=== PATIENT | female | born 1965 | race Caucasian/White ===

== ENCOUNTER → 2018-06-15 15:25 | Outpatient (POV) | payer MEDICARE, OTHER, SELFPAY ==
[2018-06-15 15:41] VITALS: BP 138/85; PULSE 87; RESP 18; O2SAT 97
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
== END ==
PROVIDERS: PCP Family Medicine; Visit Provider Clinical Nurse Specialist Family Health
DX: M51.36 Other intervertebral disc degeneration, lumbar region (principal); M96.1 Postlaminectomy syndrome, not elsewhere classified
CPT/HCPCS: 99202

== ENCOUNTER 2018-08-04 17:23 | Observation (INO) ==
--- NOTE | 2018-08-04 17:57 | Emergency Department Note ---
ED Disposition Clinical Impression: Acute bronchitis with bronchospasm, Hypoxia Disposition: Admitted As Inpatient Condition on Discharge: Fair - Critical Care Critical Care Time: Yes Attestation: On 08/04/18, the high probability of a clinically significant, sudden or life threatening deterioration of the following system(s) required my full and direct attention, intervention and personal management. The time I documented below is in addition to time spent performing reported procedures but includes the following listed in this critical care notation. Total Critical Care Time: 32 Vital system(s) involved:: Respiratory Failure My critical care processes included: Assessment & monitoring of V/S, Initial and Re-exams, Data Review/Interpretation, Coordinating Care, Medication Orders and management, Documentation Medical Decision Making - Johnnie Inquiry Pt receiving controlled substance: No Vital Signs: 08/04/18 17:24 08/04/18 17:39 08/04/18 18:23 Temperature 99 F Temperature Source Oral Pulse Rate Pulse Rate [Left Brachial] 103 H 93 H Respiratory Rate 24 24 Blood Pressure Blood Pressure [Left Arm] 131/77 150/75 H Blood Pressure Mean [Left Arm] 95 100 Blood Pressure Source Blood Pressure Source [Left Arm] Automatic Cuff Automatic Cuff Blood Pressure Position Blood Pressure Position [Left Arm] Sitting Supine 02 Sat by Pulse Oximetry 83 L 86 L 92 L Oxygen Delivery Method Room Air Room Air Room Air Oxygen Flow Rate (LPM) 2 08/04/18 20:00 08/04/18 20:16 Temperature 98.6 F Temperature Source Oral Pulse Rate 84 Pulse Rate [Left Brachial] 82 Respiratory Rate 18 18 Blood Pressure 125/83 Blood Pressure [Left Arm] 143/75 H Blood Pressure Mean [Left Arm] 97 Blood Pressure Source Automatic Cuff Blood Pressure Source [Left Arm] Automatic Cuff Blood Pressure Position Sitting Blood Pressure Position [Left Arm] Supine 02 Sat by Pulse Oximetry 92 L Oxygen Delivery Method Nasal Cannula Nasal Cannula Oxygen Flow Rate (LPM) 2.5 - Lab Data Lab Results 08/04/18 17:55: WBC 7.4, RBC 4.21, Hgb 12.8, Hct 39.8, MCV 94.6, MCH 30.5, MCHC 32.2, RDW 13.4, Plt Count 185, MPV 9.3, Neut % (Auto) 65.2, Lymph % (Auto) 27.4, [place] % (Auto) 6.5, Eos % (Auto) 0.3, Baso % (Auto) 0.6, Neut # (Auto) 4.8, Lymph # (Auto) 2.0, [place] # (Auto) 0.5, Eos # (Auto) 0.0, Baso # (Auto) 0.1 08/04/18 17:55: Sodium 136, Potassium 3.4 L, Chloride 101, Carbon Dioxide 27, Anion Gap 11.4, BUN 10, Creatinine 0.91, Estimated Creat Clear 104, Estimated GFR 65, Est GFR ( Amer) 79, Glucose 100, Calcium 8.2 L, Troponin I < 0.02 08/04/18 17:55: Lactate 0.3 L Result diagrams: 08/04/18 17:55 08/04/18 17:55 Orders (Tests/Meds): ED MEDICATIONS Generic Name Dose Route Start Last Admin Trade Name Freq PRN Reason Stop Dose Admin Acetaminophen 650 mg 08/04/18 20:04 Acetaminophen 325mg Tab PO 09/03/18 20:03 Q4HP PRN As Needed for Fever or Pain Albuterol/Ipratropium 3 ml 08/05/18 06:00 Duoneb 3ml [facility] 09/04/18 05:59 QIDRT ARETHA Azithromycin 500 mg/ Sodium 250 mls @ 250 mls/hr 08/05/18 18:30 Chloride IV 08/18/18 18:29 Q24H ARETHA Protocol Ceftriaxone Sodium 1 gm/ 50 mls @ 100 mls/hr 08/05/18 18:30 Sodium Chloride IV 08/18/18 18:29 Q24H [facility] Protocol Methylprednisolone Sodium Succinate 80 mg 08/04/18 20:15 Solu-Medrol 125mg/2ml Vial IV 09/03/18 20:14 Q8H [facility] Sodium Chloride 3 ml 08/04/18 20:04 Sodium Chloride 3% 15ml [facility] 09/03/18 18:16 ONCE PRN INDUCE [employer] Discontinued Medications Generic Name Dose Route Start Last Admin Trade Name Freq PRN Reason Stop Dose Admin Albuterol/Ipratropium 3 ml 08/04/18 18:17 08/04/18 18:31 Duoneb 3ml [facility] 08/04/18 18:18 3 ml ONCE ONE Administration Aspirin 324 mg 08/04/18 18:04 08/04/18 18:07 Aspirin 81mg Chewable Tablet PO 08/04/18 18:05 324 mg ONCE ONE Administration Azithromycin 500 mg/ Sodium 250 mls @ 250 mls/hr 08/04/18 18:30 08/04/18 18:38 Chloride IV 08/18/18 18:29 250 mls/hr Q24H ARETHA Administration Protocol Ceftriaxone Sodium 1 gm/ 50 mls @ 100 mls/hr 08/04/18 18:30 08/04/18 18:31 Sodium Chloride IV 08/18/18 18:29 100 mls/hr Q24H ARETHA Administration Protocol Methylprednisolone Sodium Succinate 125 mg 08/04/18 18:17 08/04/18 18:31 Solu-Medrol 125mg/2ml Vial IV 08/04/18 18:18 125 mg ONCE ONE Administration Sodium Chloride 3 ml 08/04/18 18:17 Sodium Chloride 3% 15ml Neb IH 09/03/18 18:16 ONCE PRN INDUCE [employer] ORDERS Category Date Time Status XR chest portable Stat Exams 08/04/18 17:39 Taken Blood Culture Stat Micro 08/04/18 17:55 Received Sputum Culture & Gram Stain Stat Micro 08/04/18 18:17 Ordered ECG Request by /Naseem Stat Y 08/04/18 17:39 Stop Req - Radiology Data #1 Image(s): Chest Image Reviewed: Yes I reviewed the patient's radiology image Atelectasis versus scar versus minimal infiltrate in the bases. No old x-rays for comparison. - ECG Data Tracing #1 EKG interpreted by Mao Ngo MD: Rhythm: sinus Rate: 90 [place]: Right Ectopy: none Conduction: normal ST Segment Changes: none T Wave Changes: none Q Waves: none No evidence of acute ischemia or injury - Physician Consults Physician Consulted: Artem Time: 19:50 Reason -: Admission Comment/Response: Agrees to admit the patient to the hospital. We discussed the patient's clinical information, including history, exam, laboratory and radiology results and ED course. Per hospital procedure, I will write temporary bridge inpatient orders on the patient. Specific orders requested by the admitting physician: Continue antibiotics, nebulizer treatments, steroids, oxy gen General Adult HPI - General Chief complaint: Shortness of Breath/Dyspnea Stated complaint: Head and chest congestion, wheezing Time Seen by Provider: 08/04/18 17:57 Mode of Arrival: Family Vehicle Source of Information: Patient Limitations: No Limitations Description of Symptoms (Recalled from ER Triage Doc. by RN): C/O SOB,CHEST DISCOMFORT WITH RESP,HEADACHE,WHEEZING FOR 2 DAYS WITH HYPOXIA UPON ARRIVAL - History of Present Illness HPI narrative: 2-day history of productive cough with yellow sputum, subjective fever, rhinorrhea, diarrhea, bitemporal headache, wheezing and shortness of breath. Chest discomfort in the ribs bilaterally when she coughs. Denies history of COPD. She is a smoker, but says she did not start until she was in her 30s. - Related Data Home Medications Medication Instructions Recorded Confirmed Citalopram Hydrobromide 20 mg PO DAILY 06/15/18 08/04/18 [Citalopram HBr] Omeprazole [Omeprazole 40mg 40 mg PO DAILY 06/15/18 08/04/18 Capsule] Allergies Allergy/AdvReac Type Severity Reaction Status Date / Time No Known Allergies Allergy Unverified 08/05/17 14:26 [facility] History - Hepatitis A Screen Drug use history?: No High risk sexual behaviors?: No History of sexually transmitted infection?: No Currently employed?: No Childcare worker?: No Do you have indoor plumbing?: Yes Do you have electricity?: Yes Attestation statement:: This patient has been screened for Hepatitis A risk factors. I have reviewed the patient's past medical history: Yes Medical History: Reports:: Palpitations Denies:: Diabetes Mellitus Type 1, Diabetes Mellitus Type 2 Other Medical History: Reports: Arthritis Laterality Cases: Left: Arthroscopy Knee, Carpal Tunnel Release Other Surgeries: Yes: Cholecystectomy - Social History Smoking Status: Current every day smoker Tobacco Type: cigarettes # Packs/Day (cigarettes): 1 Alcohol Intake: never Occupational Status: other Housing: house - Psychiatric History Expresses thoughts of harming self/others: None Suicide Plan Description: No Plan Family Hx:: Unable to obtain ROS Obtained: Yes All systems reviewed & no additional complaints - Constitutional Constitutional: Reports fever(s) - ENT Ears, Nose, Mouth, and Throat: Reports nasal discharge - Cardiovascular Cardiovascular: Reports chest pain (When coughing) - Respiratory Respiratory: Yes cough, Yes dyspnea, Yes wheezing - Gastrointestinal Gastrointestingal: Reports: diarrhea. Denies: vomiting - Neurologic Neurologic: Reports headache(s) Physical Exam - General General appearance: alert - Head Head exam: atraumatic, normocephalic - Eye Eye exam: Present: PERRL, EOMI - ENT ENT exam: Present: normal oropharynx, mucous membranes moist - Neck Neck exam: Present: normal inspection, trachea midline - Chest Chest inspection: Present: normal inspection - Respiratory Respiratory exam: Present: wheezes - Cardiovascular Cardiovascular exam: Present: normal rhythm, tachycardia, normal heart sounds - Abdominal Exam Abdominal exam: Present: soft. Absent: distention, tenderness, guarding - Extremities Exam Extremities exam: Present: normal inspection, other (Left leg tenderness, chronic, states prior knee surgery with left leg pain for years) - Neurological Exam Neurological exam: Present: alert, oriented X3 - Psychiatric Psychiatric exam: Present: normal affect, normal mood - Skin Skin exam: Present: warm, dry
[2018-08-04 18:10] LABS: Basophils # 0.1 K/mm3 (0-0.2); Basophils % 0.6 % (0.1-2.0); Eosinophils % 0.3 % (0.1-12.0); Hematocrit 39.8 % (37.0-47.0); Hemoglobin 12.8 g/dL (12.2-16.2); Lymphocytes % 27.4 % (10-50); Mean Corpuscular HGB Conc 32.2 g/dL (31.8-35.4); Mean Corpuscular Hemoglobin 30.5 pg (27.0-31.2); Mean Corpuscular Volume 94.6 fl (81-99); Mean Platelet Volume 9.3 fl (7.4-10.4); Monocytes # 0.5 K/mm3 (0.1-1.0); Monocytes % 6.5 % (1.7-9.3); Neutrophils # 4.8 K/mm3 (1.8-7.8); Neutrophils % 65.2 % (37.0-80.0); Platelet Count 185 K/mm3 (142-424); Red Blood Count 4.21 M/mm3 (4.20-5.40); Red Cell Distribution Width 13.4 % (11.5-17.5); White Blood Count 7.4 K/mm3 (4.8-10.8)
[2018-08-04 18:31] LABS: Anion Gap 11.4 mEq/L (5-15); Blood Urea Nitrogen 10 mg/dL (7-18); Calcium 8.2 mg/dL (8.5-10.1); Carbon Dioxide 27 mmol/L (21.0-32.0); Chloride 101 mmol/L (98-107); Glucose 100 mg/dL (74-106); Potassium 3.4 mmoL/L (3.5-5.1); Sodium 136 mmol/L (136-145)
--- NOTE | 2018-08-05 07:49 | Pharmacy Consult Notes ---
[facility] Pharm[facility] VTE Monitoring - Patient Demographics Admission date: 08/04/18 Report Date: 08/05/18 Time: 07:49 Allergies/Adverse Reactions: Patient Allergies No Known Allergies Allergy (Verified 08/04/18 20:44) Height: 1.68 m Weight: 94.404 kg Patient Problems: Current Active Problems Acute bronchitis with bronchospasm (Acute) Hypoxia (Acute) - VTE Risk Labs: VTE Related Lab Results Hgb 12.8 g/dL (12.2-16.2) 08/04/18 17:55 Hct 39.8 % (37.0-47.0) 08/04/18 17:55 Plt Count 185 K/mm3 (142-424) 08/04/18 17:55 BUN 10 mg/dL (7-18) 08/04/18 17:55 Creatinine 0.91 mg/dL (0.55-1.02) 08/04/18 17:55 Estimated Creat Clear 104 mL/min (50-200) 08/04/18 17:55 Was VTE Risk Assessment Performed: Yes VTE Risk Level: Very Low Risk Clinical Trial Participant: No - Prophylaxis VTE Prophylaxis Ordered?: Yes Types of VTE Prophylaxis: TEDS Knee High
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
--- NOTE | 2018-08-06 09:36 | Discharge Summary ---
General - General Admission date:: 08/04/18 Discharge date: 08/06/18 HPI HPI: 52-year-old white female with long smoking history who is on disability because of back pain and significant accidents, who presented to the emergency department with cough, congestion and hypoxia. Found to have a couple of different patchy infiltrates on chest x-ray, admitted to hospital for community acquired pneumonia with hypoxia. Hospital Course Hospital Course: Patient was treated aggressively for COPD exacerbation and community-acquired bronchopneumonia. She responded very nicely with improving vital signs, stabilized labs and improving oxygen saturations. She revealed during the hospitalization that she had been on chronic opiate therapy through a pain clinic in [place] but because of controlled substance contract violation issues opiates had been discontinued. She is apparently been buying opiates off the street and has been taking Percocet 15 mg 4 times daily. She was beginning to have some withdrawal symptoms so in the hospital we administered 10 mg every 8 hours which resolved her withdrawal symptoms. This morning she had improved vis--vis pulmonary symptoms, and was on a very stable low-dose of 2 L nasal cannula oxygen. She was able to eat well and drink well. Tolerating nebulizer treatments well. Plan will be to discharge her home today. I have informed her that she clearly has emphysema and that she must quit smoking for her to have any chance of improving significantly. We will prescribe home oxygen, nebulizer treatments and antibiotics and steroids to go home. I will give her a limited prescription of oxycodone 10 mg tablets, 6 of these to take 1 daily to prevent withdrawal symptoms and then she needs to discuss this with her regular physician, Dr. Fish in [place]. She needs close follow-up with Dr. Fish to evaluate further treatment for her emphysema. Objective Vital signs: Temp Pulse Resp BP Pulse Ox 98.0 F 92 H 19 108/52 L 91 L 08/06/18 07:58 08/06/18 07:58 08/06/18 07:58 08/06/18 07:58 08/06/18 07:58 Narrative: Patient is awake, alert. Eating breakfast well. No acute distress on 2 L nasal cannula. Lungs have rhonchi with occasional expiratory wheezing but much better air entry than admission exam. She is able to talk without interrupting for breathing, heart rate is regular without murmurs, no tachycardia or tachypnea on oxygen. Abdomen soft. No clubbing or cyanosis. Neurologic exam intact. Results Labs on day of discharge: Preliminary micro results at discharge 08/05/18 09:16 Sputum Culture - Preliminary Sputum - Expectorated Sputum DS: Diagnosis - Discharge Diagnosis (1) Acute bronchitis with bronchospasm Status: Acute (2) Hypoxia Status: Acute (3) Panlobular emphysema Status: Chronic Discharge Plan - Patient Discharge Instructions ACTIVITY: Continue current activity DIET: continue same diet - Follow up Plan Follow up with: Inge Fish [Referring] - 1 week Disposition: Home, Self-Halfway Medications: Home Medications Medication Instructions Recorded Confirmed Type Citalopram Hydrobromide 20 mg PO DAILY 06/15/18 08/04/18 History [Citalopram HBr] Omeprazole [Omeprazole 40mg 40 mg PO DAILY 06/15/18 08/04/18 History Capsule] Azithromycin [Zithromax 250mg 250 mg PO DIRECTED #6 tab 08/06/18 Rx tab] Cefdinir [Omnicef 300mg Capsule] 300 mg PO BID #14 cap 08/06/18 Rx Ipratropium/Albuterol Sulfate 3 ml IH TID #90 neb 08/06/18 Rx [Duoneb 3mL neb] Oxycodone HCl [Oxycodone (IR) 10mg 10 mg PO DAILYP PRN #6 tab 08/06/18 Rx Tab] predniSONE [Deltasone 20mg 20 mg PO BID 7 Days #14 tab 08/06/18 Rx tablet] Prescriptions/Medication Reconciliation: New Azithromycin [Zithromax 250mg tab] 250 mg PO DIRECTED #6 tab Ipratropium/Albuterol Sulfate [Duoneb 3mL neb] 3 ml IH TID #90 neb predniSONE [Deltasone 20mg tablet] 20 mg PO BID 7 Days #14 tab Oxycodone HCl [Oxycodone (IR) 10mg Tab] 10 mg PO DAILYP PRN #6 tab PRN Reason: Withdrawal symptoms Cefdinir [Omnicef 300mg Capsule] 300 mg PO BID #14 cap Continue Citalopram Hydrobromide [Citalopram HBr] 20 mg PO DAILY Omeprazole [Omeprazole 40mg Capsule] 40 mg PO DAILY
== END 2018-08-06 18:14 | disposition home or self-care (01) ==
LOC: ER 17:23 → 2ND 17:23
PROVIDERS: ADMIT Internal Medicine Adolescent Medicine; ATTEND Internal Medicine Adolescent Medicine

== ENCOUNTER → 2018-09-09 15:50 | Outpatient (CLI) | payer MEDICARE, SELFPAY ==
--- NOTE | 2018-09-09 16:00 | MM_ITS ---
MM Dig screening mamm BI w/CAD CAD Screening COMPARISON: Digital mammograms with CAD 10/22/2016 and 06/03/2013 INDICATION: There is no personal or family history of breast cancer TECHNIQUE: Standard CC and MLO images were obtained. R2 CAD reviewed. FINDINGS: Scattered fibroglandular densities are seen throughout both breasts. There is a benign-appearing calcification in each breast and is a mole marker right breast. There is no suspicious lesion and there are no suspicious microcalcifications. IMPRESSION: Fibrofatty parenchyma no suspicious lesion seen BI-RADS Category: 2 Benign Finding(s) RECOMMENDED FOLLOW-UP: 1YR - 1 YEAR FOLLOW-UP (A letter has been sent to the patient regarding results of the study.)
== END ==
PROVIDERS: PCP Internal Medicine Adolescent Medicine; Visit Provider Internal Medicine Adolescent Medicine
DX: Z12.31 Encounter for screening mammogram for malignant neoplasm of breast (principal)
CPT/HCPCS: 77067

== ENCOUNTER → 2018-12-11 07:49 | Outpatient (CLI) | payer MEDICARE, OTHER, SELFPAY ==
[2018-12-11 08:31] LABS: Basophils # 0.1 K/mm3 (0-0.2); Eosinophils # 0.4 K/mm3 (0.0-0.4); Eosinophils % 8.3 % (0.1-12.0); Hematocrit 38.8 % (37.0-47.0); Hemoglobin 12.6 g/dL (12.2-16.2); Lymphocytes # 1.5 K/mm3 (0.7-4.5); Lymphocytes % 32.5 % (10-50); Mean Corpuscular HGB Conc 32.4 g/dL (31.8-35.4); Mean Corpuscular Hemoglobin 31.3 pg (27.0-31.2); Mean Corpuscular Volume 96.4 fl (81-99); Mean Platelet Volume 9.2 fl (7.4-10.4); Monocytes # 0.2 K/mm3 (0.1-1.0); Monocytes % 4.4 % (1.7-9.3); Neutrophils # 2.5 K/mm3 (1.8-7.8); Neutrophils % 53.8 % (37.0-80.0); Platelet Count 227 K/mm3 (142-424); Red Blood Count 4.02 M/mm3 (4.20-5.40); Red Cell Distribution Width 13.5 % (11.5-17.5); White Blood Count 4.6 K/mm3 (4.8-10.8)
[2018-12-11 09:23] LABS: Alanine Aminotransferase 14 U/L (12-78); Albumin Level 3.1 gm/dL (3.4-5.0); Alkaline Phosphatase 97 U/L (46-116); Aspartate Amino Transferase 13 U/L (15-37); Bilirubin,Total 0.3 mg/dL (0.2-1.0); Blood Urea Nitrogen 9 mg/dL (7-18); Calcium 8.6 mg/dL (8.5-10.1); Carbon Dioxide 29 mmol/L (21.0-32.0); Chloride 107 mmol/L (98-107); Creatinine,Serum 0.96 mg/dL (0.55-1.02); Estimated Glomerular Filt Rate 61 ml/min (>60); Free Thyroxine Index 2.4 ug/dL (5.93-13.13); GFR (African American) 74 ML/MIN (>60); Glucose 80 mg/dL (74-106); Sodium 144 mmol/L (136-145); T4 (Thyroxine) 7.9 ug/dl (4.7-13.3); Thyroid Stimulating Hormone 1.48 uIU/ml (0.358-3.740); Total Protein,Serum 6.1 gm/dL (6.4-8.2); Triiodothryronine (T3) Uptake 31 % (31-39)
[2018-12-12 06:44] LABS: Vitamin D 25 Hydroxy 22.4 ng/mL (30.0-100.0)
[2018-12-12 12:40] LABS: FSH 58.3 mIU/mL (.); LH 32.5 mIU/mL (.)
[2018-12-12 12:41] LABS: Rapid Plasma Reagin Ab Titer Non Reactive (NonRea<1:1); Vitamin B12 418 pg/mL (232-1245)
== END ==
PROVIDERS: Visit Provider Internal Medicine Adolescent Medicine
DX: R61 Generalized hyperhidrosis (principal); E55.9 Vitamin D deficiency, unspecified; G60.9 Hereditary and idiopathic neuropathy, unspecified
CPT/HCPCS: 36415; 80053; 82607; 82652; 83001; 83002; 84436; 84443; 84479; 85025; 86592

== ENCOUNTER → 2018-12-17 12:53 | Outpatient (CLI) | payer OTHER, MEDICARE, SELFPAY ==
--- NOTE | 2018-12-17 13:00 | XR_ITS ---
XR knee LT 4V HISTORY: ITS.REASON: ACUTE KNEE PAIN ORDERING PHYSICIAN: Eric Mcgill MD PATIENT AGE: 53 years COMPARISON: None FINDINGS: There has been prior ORIF of the lateral tibial plateau with a lateral bone plate and multiple screws present. There are mild osteoarthritic changes involving all 3 compartments. No acute fracture or dislocation. No lytic or blastic change. IMPRESSION: Mild osteoarthritis, prior ORIF lateral tibial plateau with good alignment.
== END ==
PROVIDERS: PCP Internal Medicine Adolescent Medicine; Visit Provider Internal Medicine Adolescent Medicine
DX: M25.562 Pain in left knee (principal)
CPT/HCPCS: 73564

== ENCOUNTER → 2020-04-14 14:01 | Outpatient (POV) | payer MEDICARE, OTHER, SELFPAY | PROVIDERS: Visit Provider Internal Medicine Nephrology | DX: Z00.00 Encounter for general adult medical examination without abnormal findings (principal) ==

== ENCOUNTER → 2020-05-02 08:39 | Outpatient (CLI) | payer MEDICARE, OTHER, SELFPAY ==
--- NOTE | 2020-05-02 08:48 | MR_ITS ---
PROCEDURE: MR LUMBAR SPINE WO/W CON CLINICAL INDICATION: RADICULOPATHY, LUMBAR SPINE PT. C/O LEFT SIDED LBP S/P FALL 5 DAYS AGO COMPARISON: MR [facility] [place]-SPINE W/WO from 09/13/[address] lumbar spine wo con from 08/26/2018 TECHNIQUE: Standard multiplanar multiecho sequences are performed without and with contrast. 3-D MIP and myelographic images are also rendered and reviewed FINDINGS: There is normal alignment. T11-T12: Mild degenerative disc disease. T12-L1: Mild degenerative disc disease. L1-L2: Unremarkable. L2-L3: Minimal bulging disc. L3-L4: Minimal bulging disc with minimal left paracentral disc protrusion. There is facet and ligamentum hypertrophy with mild left lateral recess narrowing. L4-5: Degenerative disc disease. There is a left paracentral and foraminal area of decreased T1 and T2 signal. This however does demonstrate some mild contrast enhancement consistent with some epidural fibrosis as previously described overall not significantly changed. There is moderate to severe left-sided foraminal narrowing. L5-S1: Post laminectomy. Degenerative disc disease with bulging disc with 3 mm retrolisthesis of the of L5 on S1. There is moderate to severe bilateral foraminal narrowing. No extruded herniated disc. Overall no significant change from the previous exam. IMPRESSION: 1. L3-L4: Minimal bulging disc with minimal left paracentral disc protrusion. There is facet and ligamentum hypertrophy with mild left lateral recess narrowing. 2. L4-5: Degenerative disc disease. There is a left paracentral and foraminal area of decreased T1 and T2 signal. This however does demonstrate some mild contrast enhancement consistent with some epidural fibrosis as previously described overall not significantly changed. There is moderate to severe left-sided foraminal narrowing. 3. L5-S1: Post laminectomy. Degenerative disc disease with bulging disc with 3 mm retrolisthesis of the of L5 on S1. There is moderate to severe bilateral foraminal narrowing. 4. No extruded herniated disc. Overall no significant change from the previous exam. Dictated by: Delvin Gong MD 05/03/2020 15:42 Delvin Gong MD in [place] 05/03/2020 15:42
== END ==
PROVIDERS: PCP Emergency Medicine; Visit Provider Anesthesiology Pain Medicine
DX: M54.16 Radiculopathy, lumbar region (principal)
CPT/HCPCS: 72158; 76376; A9576

== ENCOUNTER → 2020-05-31 09:41 | Outpatient (CLI) | payer MEDICARE, OTHER, SELFPAY ==
[2020-05-31 09:47] LABS: Microscopic, Urine URINE MICROSCOPIC (MICROSCOPIC)
[2020-05-31 10:14] LABS: Basophils % 0.7 % (0.1-2.0); Eosinophils # 0.3 K/mm3 (0.0-0.4); Eosinophils % 4.4 % (0.1-12.0); Hematocrit 44.9 % (37.0-47.0); Hemoglobin 14.5 g/dL (12.2-16.2); Lymphocytes # 1.3 K/mm3 (0.7-4.5); Lymphocytes % 22.5 % (10-50); Mean Corpuscular HGB Conc 32.2 g/dL (31.8-35.4); Mean Corpuscular Volume 96.1 fl (81-99); Monocytes # 0.3 K/mm3 (0.1-1.0); Monocytes % 5.6 % (1.7-9.3); Neutrophils # 3.8 K/mm3 (1.8-7.8); Neutrophils % 66.8 % (37.0-80.0); Platelet Count 269 K/mm3 (142-424); Red Blood Count 4.67 M/mm3 (4.20-5.40); Red Cell Distribution Width 12.9 % (11.5-17.5); White Blood Count 5.7 K/mm3 (4.8-10.8)
[2020-05-31 11:38] LABS: 25-OH Vitamin D, Total 36.6 ng/mL (30-100)
[2020-05-31 13:04] LABS: Alanine Aminotransferase 6 U/L (12-78); Albumin Level 4.4 g/dl (3.5-5.0); Albumin/Globulin Ratio 1.4 (1.1-1.8); Alkaline Phosphatase 115 U/L (38-126); Anion Gap 27.2 mEq/L (5-15); Aspartate Amino Transferase 24 U/L (14-36); Bilirubin,Total 0.5 mg/dl (0.2-1.3); Blood Urea Nitrogen 11 mg/dl (7-17); Calcium 9.7 mg/dl (8.4-10.2); Carbon Dioxide 36 mmol/L (22.0-30.0); Chloride 93 mmol/L (98-107); Estimated Glomerular Filt Rate 65 ml/min (>60); GFR (African American) 79 ML/MIN (>60); Globulin 3.1 g/dL (1.3-3.2); Glucose 68 mg/dl (74-100); Potassium 3.2 mmoL/L (3.5-5.1); Total Protein,Serum 7.5 g/dl (6.3-8.2)
[2020-05-31 13:32] LABS: Sodium 153 mmol/L (136-145)
[2020-05-31 18:44] LABS: Appearance,Urine SL CLOUDY (Clear); Blood, Urine Negative (Negative); Color,Urine DK YELLOW (Yellow); Glucose,Urine (UA) Negative (Negative); Ketones,Urine Negative (Negative); Leukocyte Esterase,Urine Negative (Negative); Nitrate,Urine Negative (Negative); Protein,Urine Negative (Negative); Specific Gravity, Urine >= 1.030 (1.005-1.030); Urobilinogen,Urine 0.2 EU/dl (0.2)
[2020-05-31 18:51] LABS: Bilirubin,Urine Negative (Negative)
[2020-05-31 19:04] LABS: Creatinine,Urine Random 289 mg/dL (Not Estab.)
[2020-05-31 19:16] LABS: Bacteria,Urine Trace /lpf; RBC,Urine Occasional #/hpf (0-3)
== END ==
PROVIDERS: Visit Provider Internal Medicine Nephrology
DX: N17.9 Acute kidney failure, unspecified (principal); N18.2 Chronic kidney disease, stage 2 (mild); R60.9 Edema, unspecified
CPT/HCPCS: 36415; 80053; 81001; 82306; 82570; 84155; 85025

== ENCOUNTER → 2020-06-09 15:48 | Outpatient (POV) | payer MEDICARE, OTHER, SELFPAY | PROVIDERS: Visit Provider Internal Medicine Nephrology | DX: Z00.00 Encounter for general adult medical examination without abnormal findings (principal) ==

== ENCOUNTER → 2020-10-10 13:42 | Outpatient (CLI) | payer MEDICARE, OTHER, SELFPAY ==
[2020-10-10 13:46] LABS: Microscopic, Urine URINE MICROSCOPIC (MICROSCOPIC)
[2020-10-10 14:02] LABS: Appearance,Urine CLEAR (Clear); Bilirubin,Urine 1+ (Negative); Blood, Urine Negative (Negative); Color,Urine YELLOW (Yellow); Glucose,Urine (UA) Negative (Negative); Ketones,Urine TRACE (Negative); Leukocyte Esterase,Urine Negative (Negative); Nitrate,Urine Negative (Negative); PH,Urine 6.5 (5.0-8.5); Protein,Urine TRACE (Negative); Specific Gravity, Urine 1.015 (1.005-1.030)
[2020-10-10 14:20] LABS: RBC,Urine Occasional #/hpf (0-3)
[2020-10-10 19:18] LABS: Chloride 102 mmol/L (98-107); Potassium 3.9 mmoL/L (3.5-5.1); Sodium 136 mmol/L (136-145)
[2020-10-10 19:21] LABS: Anion Gap 6.9 mEq/L (5-15); Blood Urea Nitrogen 13 mg/dl (7-17); Carbon Dioxide 31 mmol/L (22.0-30.0); Estimated Glomerular Filt Rate 65 ml/min (>60); GFR (African American) 79 ML/MIN (>60)
[2020-10-10 19:22] LABS: Calcium 9.3 mg/dl (8.4-10.2); Glucose 104 mg/dl (74-100); Phosphorous 4.3 mg/dl (2.5-4.5)
== END ==
PROVIDERS: Visit Provider Internal Medicine Nephrology
DX: N18.30 Chronic kidney disease, stage 3 unspecified (principal); N17.9 Acute kidney failure, unspecified; R60.9 Edema, unspecified; E87.6 Hypokalemia
CPT/HCPCS: 36415; 80069; 81001

== ENCOUNTER → 2020-10-13 15:56 | Outpatient (POV) | payer MEDICARE, OTHER, SELFPAY | PROVIDERS: Visit Provider Internal Medicine Nephrology | DX: Z00.00 Encounter for general adult medical examination without abnormal findings (principal) ==

== ENCOUNTER 2021-04-25 20:02 | Emergency (ER) | payer MEDICARE, OTHER, SELFPAY ==
[2021-04-25 21:02] VITALS: BP 122/75; PULSE 90; RESP 20; TEMP 37.1; O2SAT 99; BMI 27.6
[2021-04-25 21:12] LABS: Influenza A, PCR Not Detected (NotDetected); Influenza B, PCR Not Detected (NotDetected)
[2021-04-25 21:17] LABS: Basophils % 1.5 % (0.1-2.0); Eosinophils % 0.7 % (0.1-12.0); Hematocrit 45.3 % (37.0-47.0); Hemoglobin 14.7 g/dL (12.2-16.2); Lymphocytes # 1.1 K/mm3 (0.7-4.5); Lymphocytes % 39.7 % (10-50); Mean Corpuscular HGB Conc 32.4 g/dL (31.8-35.4); Mean Corpuscular Hemoglobin 31.8 pg (27.0-31.2); Mean Corpuscular Volume 98.2 fl (81-99); Mean Platelet Volume 9.8 fl (7.4-10.4); Monocytes # 0.2 K/mm3 (0.1-1.0); Monocytes % 6.8 % (1.7-9.3); Neutrophils # 1.4 K/mm3 (1.8-7.8); Neutrophils % 51.3 % (37.0-80.0); Platelet Count 218 K/mm3 (142-424); Red Blood Count 4.62 M/mm3 (4.20-5.40); Red Cell Distribution Width 13.4 % (11.5-17.5); White Blood Count 2.7 K/mm3 (4.8-10.8)
[2021-04-25 21:24] LABS: Alanine Aminotransferase 13 U/L (12-78); Albumin Level 4.1 g/dl (3.5-5.0); Albumin/Globulin Ratio 1.2 (1.1-1.8); Alkaline Phosphatase 90 U/L (38-126); Aspartate Amino Transferase 60 U/L (14-36); Bilirubin,Total 0.2 mg/dl (0.2-1.3); Blood Urea Nitrogen 7 mg/dl (7-17); Calcium 8.9 mg/dl (8.4-10.2); Carbon Dioxide 26 mmol/L (22.0-30.0); Chloride 105 mmol/L (98-107); Creatinine Clearance Estimated 111 mL/min (50-200); Estimated Glomerular Filt Rate 87 ml/min (>60); GFR (African American) 105 ML/MIN (>60); Globulin 3.3 g/dL (1.3-3.2); Glucose 94 mg/dl (74-100); Sodium 141 mmol/L (136-145); Total Protein,Serum 7.4 g/dl (6.3-8.2)
[2021-04-25 21:48] LABS: Coronavirus 19, PCR Detected (NotDetected)
--- NOTE | 2021-04-25 21:52 | XR_ITS ---
PROCEDURE INFORMATION: Exam: XR Chest Exam date and time: 04/25/2021 9:52 PM Age: 55 years old Clinical indication: Cough and shortness of breath; Patient HX: Cough, SOA, covid positive TECHNIQUE: Imaging protocol: XR of the chest. Views: 2 views. COMPARISON: CR CXR1VP XR chest portable 08/04/2018 6:09 PM FINDINGS: Lungs: There are areas of chronic infiltration noted within both infrahilar regions, greater on the left. Overall pulmonary aeration of both infrahilar regions appears improved when compared with prior examination of 08/04/2018. There is no evidence of pulmonary volume overload. Pleural spaces: There is minimal blunting of the left lateral costophrenic angle suggesting pleural thickening along the left lateral costophrenic angle. No evidence of pneumothorax. Heart/Mediastinum: Unremarkable. No cardiomegaly. Bones/joints: Unremarkable. Multiple clips identified within the right upper quadrant, compatible with prior cholecystectomy. IMPRESSION: There are chronic areas of infiltration or scarring noted within both infrahilar regions although overall pulmonary aeration appears improved when compared with prior comparison examination of 08/04/2018. No evidence of new infiltrate. There is no evidence of pulmonary vascular congestion.
--- NOTE | 2021-04-25 22:03 | HMH.EDSOB ---
ED Disposition Clinical Impression: COVID-19 Disposition: Home, Self-Care Condition on Discharge: Good Instructions: DI for COVID-19 (Suspected or Confirmed ) Additional Instructions: fluids and see pcp for follow up Prescriptions: predniSONE [Prednisone 20mg Tab] 20 mg PO BID #10 tab Transmission Status: Pending to [facility] Referrals: Shiraz Ozuna MD [Primary Care Provider] - - Critical Care Critical Care Time: No Attestation: On 04/25/21, the high probability of a clinically significant, sudden or life threatening deterioration of the following system(s) required my full and direct attention, intervention and personal management. The time I documented below is in addition to time spent performing reported procedures but includes the following listed in this critical care notation. Medical Decision Making - Medical Records Medical records reviewed: Yes: I reviewed the patient's medical records. - Johnnie Inquiry Pt receiving controlled substance: No Vital Signs: 04/25/21 21:02 Temperature 98.7 F Temperature Source Oral Pulse Rate [Right] 90 Respiratory Rate 20 Blood Pressure [Right Arm] 122/75 Blood Pressure Mean [Right Arm] 90 Blood Pressure Source [Right Arm] Automatic Cuff Blood Pressure Position [Right Arm] Sitting 02 Sat by Pulse Oximetry 99 Oxygen Delivery Method Room Air - Lab Data Lab results reviewed: Yes: I reviewed the patient's lab results. Lab Results 04/25/21 20:52: SARS-CoV-2 (PCR) Detected A, Influenza A Untype (PCR) Not detected, Influenza Type B (PCR) Not detected 04/25/21 21:00: WBC 2.7 L, RBC 4.62, Hgb 14.7, Hct 45.3, MCV 98.2, MCH 31.8 H, MCHC 32.4, RDW 13.4, Plt Count 218, MPV 9.8, Neut % (Auto) 51.3, Lymph % (Auto) 39.7, [place] % (Auto) 6.8, Eos % (Auto) 0.7, Baso % (Auto) 1.5, Neut # (Auto) 1.4 L, Lymph # (Auto) 1.1, [place] # (Auto) 0.2, Eos # (Auto) 0.0, Baso # (Auto) 0.0 04/25/21 21:00: Sodium 141, Potassium 4.0, Chloride 105, Carbon Dioxide 26, Anion Gap 14.0, BUN 7, Creatinine 0.70, Estimated Creat Clear 111, Estimated GFR 87, Est GFR ( Amer) 105, Glucose 94, Calcium 8.9, Total Bilirubin 0.2, AST 60 H, ALT 13, Alkaline Phosphatase 90, Total Protein 7.4, Albumin 4.1, Globulin 3.3 H, Albumin/Globulin Ratio 1.2 Result diagrams: 04/25/21 21:00 04/25/21 21:00 Orders (Tests/Meds): ED MEDICATIONS Generic Name Dose Route Start Last Admin Trade Name Freq PRN Reason Stop Dose Admin Sodium Chloride 1,000 mls @ 999 mls/hr 04/25/21 21:30 04/25/21 21:27 Sod Chlor 0.9% 1000ml Bag IV 04/25/21 22:30 999 mls/hr .[id number] ARETHA Administration Discontinued Medications Generic Name Dose Route Start Last Admin Trade Name Freq PRN Reason Stop Dose Admin Dexamethasone Sodium Phosphate 10 mg 04/25/21 21:22 04/25/21 21:24 Dexamethasone 4mg/Ml 5ml Mdv IV 04/25/21 21:23 10 mg ONCE ONE Administration Ketorolac Tromethamine 30 mg 04/25/21 21:12 04/25/21 21:24 Ketorolac 30mg/Ml Vial IV 04/25/21 21:13 30 mg ONCE ONE Administration Methylprednisolone Sodium Succinate 125 mg 04/25/21 21:11 04/25/21 21:45 Methylprednisolone Sod Succ 125mg Vial IV 04/25/21 21:12 Not Given ONCE ONE - Radiology Data #1 Image(s): Chest Image Reviewed: Yes I have reviewed radiologist's interpretation Preliminary Findings: Abnormal (see report ) Medical Decision Narrative: has covid-19 but has stable exam and labs - asked pt to consider regen-covid infusion Resp/SOB HPI - General Chief Complaint: Upper Respiratory Infection Stated Complaint: Possible Covid fever,Cough SOB Time Seen by Provider: 04/25/21 21:30 Mode of Arrival: Ambulatory Source of Information: Patient, Medical Record Limitations: No Limitations Description of Symptoms (Recalled from ER Triage Doc. by RN): C/o weakness, not eating and fever x 3 days, report loss of taste. Reports hurting all over - History of Present Illness cough and fever and n
[2021-04-25 23:28] VITALS: BP 120/78; PULSE 88; RESP 19; TEMP 37; O2SAT 99
== END 2021-04-25 23:32 | disposition home or self-care (01) ==
PROVIDERS: Emergency Provider Emergency Medicine; PCP Emergency Medicine
DX: U07.1 COVID-19 (principal); J06.9 Acute upper respiratory infection, unspecified
CPT/HCPCS: 71046; 80053; 85025; 96365; 96375; 99283; U0003

== ENCOUNTER 2021-04-30 07:53 | Outpatient (CLI) | payer MEDICARE, OTHER, SELFPAY ==
[2021-04-30] VITALS (7 sets, daily range): BP systolic 111–143; BP diastolic 73–96; PULSE 70–83; RESP 18; TEMP 36.7; O2SAT 95–99; BMI 27.4
== END 2021-04-30 11:01 | disposition home or self-care (01) ==
LOC: INF 07:56
PROVIDERS: PCP Orthopaedic Surgery Pediatric Orthopaedic Surgery; Visit Provider Family Medicine
DX: U07.1 COVID-19 (principal)
CPT/HCPCS: 96365